=== PATIENT | female | born 1960 | race Caucasian/White ===

== ENCOUNTER → 2018-07-01 08:00 | Outpatient (CLI) | payer OTHER, SELFPAY ==
[2018-07-01 10:16] LABS: Cholesterol 173 mg/dL (140-199); HDL Cholesterol 47 mg/dL (40-60); LDL Cholesterol Calculated 111 mg/dL (<100); Triglycerides 76 mg/dL (35-150)
[2018-07-01 10:59] LABS: HIV 1 and 2 Antibody NEGATIVE (NEGATIVE)
== END ==
PROVIDERS: PCP Internal Medicine; Visit Provider Student in an Organized Health Care Education/Training Program
DX: Z13.220 Encounter for screening for lipoid disorders (principal); Z11.4 Encounter for screening for human immunodeficiency virus [HIV]
CPT/HCPCS: 36415; 80061; 86703

== ENCOUNTER → 2018-12-24 09:53 | Outpatient (CLI) | payer OTHER, SELFPAY ==
--- NOTE | 2018-12-24 | DI.MG.S_ITS ---
BILATERAL DIGITAL SCREENING MAMMOGRAM 3D/2D WITH CAD: 12/24/2018 CLINICAL: Screening Mammogram. Comparison is made to exams dated: 12/27/2016 mammogram, 12/22/2015 mammogram, 12/15/2014 mammogram, 09/14/2013 mammogram, and 09/09/2012 mammogram - [facility]. There are scattered fibroglandular elements in both breasts. Current study was also evaluated with a Computer Aided Detection (CAD) system. No significant masses, calcifications, or other findings are seen in either breast. There has been no significant interval change. IMPRESSION: NEGATIVE There is no mammographic evidence of malignancy. A 1 year screening mammogram is recommended. This exam was interpreted at Station ID: [id number]. NOTE: For mammograms, a report in lay terms will be sent to the patient. Approximately 15% of breast malignancies will not be visualized mammographically. In the management of a palpable breast mass, a negative mammogram must not discourage biopsy of a clinically suspicious lesion. Electronically Signed By: Rodolfo velásquez/michele:12/27/2018 19:17:53 letter sent: Normal Exam ACR BI-RADS Category 1: Negative 3341F
== END ==
PROVIDERS: PCP Internal Medicine; Visit Provider Internal Medicine
DX: Z12.31 Encounter for screening mammogram for malignant neoplasm of breast (principal)
CPT/HCPCS: 77063; 77067

== ENCOUNTER → 2020-01-10 15:27 | Outpatient (CLI) | payer OTHER, SELFPAY ==
[2020-01-10 15:56] LABS: COVID19 -Nasal RAPID Negative (Negative)
== END ==
PROVIDERS: PCP Internal Medicine; Visit Provider Physician Assistant
DX: Z11.59 Encounter for screening for other viral diseases (principal); R05 Cough
CPT/HCPCS: 87635

== ENCOUNTER → 2020-02-09 17:09 | Outpatient (CLI) | payer OTHER, SELFPAY ==
--- NOTE | 2020-02-09 | DI.MG.S_ITS ---
BILATERAL DIGITAL SCREENING MAMMOGRAM 3D/2D WITH CAD: 02/09/2020 CLINICAL: Routine screening. Comparison is made to exams dated: 12/24/2018 mammogram, 12/27/2016 mammogram, and 12/22/2015 mammogram - [facility]. There are scattered fibroglandular elements in both breasts. Current study was also evaluated with a Computer Aided Detection (CAD) system. No significant masses, calcifications, or other findings are seen in either breast. There has been no significant interval change. IMPRESSION: NEGATIVE There is no mammographic evidence of malignancy. A 1 year screening mammogram is recommended. This exam was interpreted at Station ID: [id number]. NOTE: For mammograms, a report in lay terms will be sent to the patient. Approximately 15% of breast malignancies will not be visualized mammographically. In the management of a palpable breast mass, a negative mammogram must not discourage biopsy of a clinically suspicious lesion. Electronically Signed By: Raffy Mart acr/michele:02/10/2020 08:42:35 letter sent: Normal Exam ACR BI-RADS Category 1: Negative 3341F
== END ==
PROVIDERS: PCP Internal Medicine; Referring Provider Internal Medicine; Visit Provider Internal Medicine
DX: Z12.31 Encounter for screening mammogram for malignant neoplasm of breast (principal)
CPT/HCPCS: 77063; 77067

== ENCOUNTER → 2020-03-10 08:38 | Outpatient (CLI) | payer OTHER, SELFPAY ==
[2020-03-10] MEDS: COVID-19 VACC(MODERNA-1)/PF 100 MCG/0.5 ML VIAL IM (08:46)
== END ==
PROVIDERS: PCP Internal Medicine; Visit Provider Internal Medicine
DX: Z23 Encounter for immunization (principal)
CPT/HCPCS: 0011A; 91301

== ENCOUNTER → 2020-04-07 08:16 | Outpatient (CLI) | payer OTHER, SELFPAY ==
[2020-04-07] MEDS: COVID-19 VACC #2, MRNA(MOD) 100 MCG/0.5 ML VIAL IM (08:23)
== END ==
PROVIDERS: PCP Internal Medicine; Visit Provider Internal Medicine
DX: Z23 Encounter for immunization (principal)
CPT/HCPCS: 0012A; 91301

== ENCOUNTER → 2020-06-23 14:35 | Outpatient (ROUT) | payer OTHER, SELFPAY ==
[2020-06-23 14:58] LABS: Add Manual Diff / Slide Review NO; Basophils Absolute Auto 0 /uL (0-100); Basophils Percent Auto 0.6 % (0-2); Eosinophils Absolute Auto 200 /uL (0-450); Eosinophils Percent Auto 3.2 % (2-4); Hematocrit 43.8 % (36-46); Hemoglobin 13.8 g/dL (12.0-16.0); Lymphocytes Absolute Auto 1700 /uL (1100-4500); Lymphocytes Percent Auto 34.4 % (25-40); Mean Corpuscular HGB Conc 31.6 % (30-36); Mean Corpuscular Hemoglobin 27.2 PG (26-34); Monocytes Absolute Auto 500 /uL (0-900); Monocytes Percent Auto 11.3 % (3-14); Neutrophils Absolute Auto 2400 /uL (1500-7000); Neutrophils Percent Auto 50.5 % (50-75); Platelet Count 248 X10^3/uL (150-400); Red Blood Cell Count 5.09 X10^6/uL (4.0-5.2); Red Cell Distribution Width 13.3 % (11.6-14.8); White Blood Cell Count 4.8 X10^3/uL (4.5-11.0)
[2020-06-23 15:10] LABS: Alanine Aminotransferase 29 IU/L (<35); Albumin Globulin Ratio 1.3 (1.0-2.8); Alkaline Phosphatase 84 U/L (38-126); Aspartate Aminotransferase 32 IU/L (14-36); BUN Creatinine Ratio 16.7 (6-22); Bilirubin Total 0.3 mg/dL (0.2-1.3); Blood Urea Nitrogen 15 mg/dL (7-17); Calcium 9.1 mg/dL (8.4-10.2); Carbon Dioxide 26 mmol/L (22-32); Chloride 107 mmol/L (98-107); Cholesterol 191 mg/dL (140-199); Estimated Glomerular Filt Rate > 60.0 mL/min (>60); Glucose 98 mg/dL (80-110); HDL Cholesterol 57 mg/dL (40-60); HEMOLYSIS < 15 (0-50); LDL Cholesterol Calculated 115 mg/dL (<100); Magnesium 2.1 mg/dL (1.6-2.3); Potassium 4.3 mmol/L (3.4-5.1); Sodium 142 mmol/L (137-145); Triglycerides 97 mg/dL (35-150)
[2020-06-23 15:39] LABS: TSH w/ Reflex to FT4 1.01 uIU/mL (0.47-4.68)
== END ==
PROVIDERS: PCP Internal Medicine; Visit Provider Physician Assistant
DX: E78.2 Mixed hyperlipidemia (principal); R00.2 Palpitations; R42 Dizziness and giddiness
CPT/HCPCS: 80053; 80061; 83735; 84443; 85025

== ENCOUNTER → 2020-07-03 15:02 | Outpatient (CLI) | payer OTHER, SELFPAY ==
--- NOTE | 2020-07-26 09:01 | PM.CARDMON.1 ---
[facility] Report Referral & Results Date Patient Seen: 07/03/20 Requesting provider: Sara Emery Indication: Palpitations Duration of monitoring (days): 3 Diary information: There were 6 patient triggered events and 6 patient diary entries Patient triggered events were associated with (within 45 seconds) sinus rhythm and runs of SVT/atrial tachycardia Diary events were associated with sinus rhythm only Data: Minimum heart rate identified was 47 beats per minute at 07:22 on 07/05/2020 Maximum sinus heart rate was 115 beats per minute at 18:51 on 07/04/2020 Maximum overall heart rate was 146 beats per minute at 19:48 on 07/04/2020 during a 5 beat run of SVT/atrial tachycardia There were 3 runs of SVT/atrial tachycardia the fastest being the 5 beat run above, the longest lasting 12 beats at a rate of 120 beats per minute Less than 1% of identified beats were ventricular or supraventricular ectopic in origin, which would classify them as rare. 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
== END ==
PROVIDERS: PCP Internal Medicine; Referring Provider Physician Assistant; Visit Provider Physician Assistant
DX: R00.2 Palpitations (principal)
CPT/HCPCS: 93242; 93244

== ENCOUNTER → 2020-08-01 07:53 | Outpatient (CLI) | payer OTHER, SELFPAY ==
--- NOTE | 2020-08-01 07:54 | DI.ECHO.S_ITS ---
[facility] +---------+ : : [address] : [address] : : : : [id number] : : : : Phone: [phone]+ Echocardiogram Report + + :Name: ETHEL GUNTER Study Date: 08/01/2020 Height: 69 in : :[facility] ReadingLocation: Weight: 200 lb : : Gender: Female BSA: 2.1 m2 : :: 1960 Age: 60 yrs BP: 142/78 mmHg: :Reason For Study: PALPITATIONS : :Ordering Physician: ANA, : :MONY Performed By: Francia Macedo : :Referring: MONY PEREZ : + + Interpretation Summary The left ventricle is normal in size and wall thickness. Left ventricular systolic function appears normal without focal wall motion abnormalities. The ejection fraction is estimated to be 60-65%. Diastolic parameters suggest probable normal left ventricular diastolic function and normal filling pressures. The right ventricle is normal in size and function. The right ventricular systolic pressure is estimated to be at least 17 mmHg based on an estimated right atrial pressure of 3 mm Hg. Both atria are normal in size. There is no significant valvular heart disease. The aortic root is normal size. Procedure: A two-dimensional transthoracic echocardiogram with color flow and Doppler was performed. The study quality was technically adequate. There is no prior echocardiogram noted for this patient. The patient was in sinus rhythm with heart rates between 64-73 bpm during the exam. Left Ventricle: The left ventricle is normal in size and wall thickness. Left ventricular systolic function appears normal without focal wall motion abnormalities. The ejection fraction is estimated to be 60-65%. Diastolic parameters suggest probable normal left ventricular diastolic function and normal filling pressures. Right Ventricle: The right ventricle is normal in size and function. Atria: Both atria are normal in size. There is no Doppler evidence for an interatrial shunt. Mitral Valve: The mitral valve leaflets appear mildly thickened, but open well. There is trace mitral regurgitation. Aortic Valve: The aortic valve is trileaflet. The aortic valve opens well. There is no aortic valve stenosis. No aortic regurgitation is present. Tricuspid Valve: The tricuspid valve is normal in structure and function. There is mild tricuspid regurgitation. The right ventricular systolic pressure is estimated to be at least 17 mmHg based on an estimated right atrial pressure of 3 mm Hg. Pulmonic Valve: The pulmonic valve leaflets are thin and pliable; valve motion is normal. There is no pulmonic valvular regurgitation. There is no significant valvular heart disease. Great Vessels: The aortic root is normal size. The dimensions of the ascending aorta are normal. The IVC is of normal diameter and collapses greater than 50% with a sniff. This suggests a low right atrial pressure of 3 mm Hg. Pericardium/ Pleura There is no pericardial effusion. There is no pleural effusion. MMode/2D Measurements & Calculations LVIDd: 4.2 cm LVOT diam: 1.9 cm LVIDs: 2.6 cm Ao root diam: 3.5 cm FS: 37.4 % asc Aorta Diam: 3.2 cm EPSS: 0.63 cm Ao Arch Diam (Prox Trans): 2.1 cm IVSd: 0.99 cm LVPWd: 1.1 cm LV anne. diameter/BSA (cm/m^2): 2.0 LV sys. diameter/BSA (cm/m^2): 1.3 LA A2 area: 16.4 cm2 RA long axis: 4.9 cm LA A4 area: 12.7 cm2 RA area: 13.2 cm2 LA length (vol): 4.5 cm RA vol: 30.2 ml LA vol: 39.6 ml RA : 14.6 ml/m2 LA vol index: 19.2 ml/m2 IVC diam: 2.0 cm RVD1 (basal): 2.6 cm RVD2 (mid): 2.3 cm TAPSE: 2.2 cm Doppler Measurements & Calculations Ao V2 max: 110.8 cm/sec LVOT Max Jose: 111.5 cm/sec Ao V2 mean: 77.6 cm/sec LV V1 max P.0 mmHg Ao max P.9 mmHg LV V1 VTI: 24.4 cm Ao mean P.7 mmHg EITAN(I,D): 2.6 cm2 Ao V2 VTI: 26.3 cm EITAN(V,D): 2.9 cm2 sev ratio: 0.93 EITAN indexed to BSA (cm^2/m^2): 1.3 MV E max jose: 64.3 cm/sec TR max jose: 187.3 cm/sec MV A max jose: 59.4 cm/sec TR max P.0 mmHg MV E/A: 1.1 PA V2 max: 80.1 cm/sec Med Peak E' Jose: 5.8 cm/sec PA V2 mean: 54.1 cm/sec E/E' med: 11.1 PA mean P.4 mmHg Lat Peak E' Jose: 10.4 cm/sec PA pr(Accel): 27.6 mmHg E/E' lat: 6.2 E/e' average: 8.6 MV dec time: 0.24 sec SV(LVOT): 69.3 ml Reading Physician:03:51 PM
== END ==
PROVIDERS: PCP Internal Medicine; Referring Provider Physician Assistant; Visit Provider Physician Assistant
DX: R00.2 Palpitations (principal)
CPT/HCPCS: 93306

== ENCOUNTER → 2020-08-04 09:11 | Outpatient (CLI) | payer OTHER, SELFPAY ==
[2020-08-04 12:03] LABS: COVID19 -Nasal RAPID Negative (Negative)
== END ==
PROVIDERS: PCP Internal Medicine; Visit Provider Surgery
DX: Z01.812 Encounter for preprocedural laboratory examination (principal); Z20.822 Contact with and (suspected) exposure to COVID-19
CPT/HCPCS: 87635; C9803

== ENCOUNTER 2020-08-07 07:26 | Day surgery (SDC) | payer OTHER, SELFPAY ==
[2020-08-07] VITALS (7 sets, daily range): BP systolic 102–122; BP diastolic 53–69; PULSE 66–77; RESP 12–16; TEMP 36.7–36.9; O2SAT 96–97; BMI 29.5
--- NOTE | 2020-08-07 | PATH_ITS ---
[facility] Accession Number: [id number] . 01 Material submitted: . sigmoid colon - SIGMOID COLON POLYP . 02 Diagnosis: Sigmoid Colon Polyp, Biopsy: Hyperplastic polyp. MRV 08/09/2020 1126 Local . 02 Electronically signed: . Cisoc Mcnityre MD, PhD, Pathologist NPI- [id number] . 01 Gross description: . SIGMOID COLON POLYP: Received in formalin are 2 fragment(s) of raymundo, soft tissue measuring 0.5 x 0.3 x 0.2 cm to 0.2 x 0.2 x 0.2 cm submitted entirely in 1 cassette(s) /EITAN 08/08/2020 0553 Local . 02 Pathologist provided ICD-10: K63.5 . 02 CPT . 776126 Performed at: 01 [facility] [address] [place] [address], [place], [place] [id number] MD Toby Cesar MD Phone: [phone] Performed at: [address] [facility] [address] [place], [place] [id number] MD Laurie Moya MD Phone: [phone]
[2020-08-07] MEDS: LACTATED RINGERS 1,000 ML 200 ML IV (08:12)
--- NOTE | 2020-08-07 08:38 | PM.HP.1 ---
History of Present Illness History of Present Illness Date Patient Seen: 08/07/20 Time Patient Seen: 08:38 Chief complaint: SDC Narrative: The patient presents for colorectal sreening. Last colonoscopy was 5 years ago and prior to this she had colonic polyps. No personal or family history of colon cancer. On further history denies any recent gastrointestinal symptoms. No nausea, vomiting, abdominal pain, loss of appetite, unexplained weight loss, change in bowel habits, diarrhea, constipation, melena, hematochezia, or bright red blood per rectum. Patient History Medical History Exposure to COVID-19 virus Headache Family & Social History Social History: household members spouse,children Tobacco & Substance use: Smoking Status Never smoker alcohol intake current alcohol intake frequency a few times a month Substance Use Type does not use Meds Home Medications and Allergies Home Medications Medication Instructions Recorded Confirmed Type No Known Home Medications 01/10/20 08/07/20 History Allergies Allergy/AdvReac Type Severity Reaction Status Date / Time latex [LATEX] Allergy Mild ITCHING, Verified 08/07/20 07:54 SKIN TURNS SKIN Review of Systems Review of Systems ROS: Yes All systems reviewed with the patient and are negative except as otherwise documented Exam Vital Signs (past 8 hours): - 08/07/20 07:57 Temperature 98.5 F Pulse Rate 72 Respiratory Rate 14 Blood Pressure 122/67 Pulse Oximetry 96 Oxygen Delivery Method Room Air Narrative Exam Narrative: GENERAL-well developed adult woman, no acute distress HEENT-no scleral icterus, hearing intact NECK-no JVD, trachea midline CVS- regular rate, no peripheral edema RESP-unlabored respiratory effort, no audible wheezing GI-soft, nontender nondistended MSK-no cyanosis or clubbing, extremities without deformity SKIN-warm, dry NEURO-alert and oriented, no focal deficits PYSCH-Appropriate mood and affect Assessment & Plan Assessment & Plan narrative: The patient requires colorectal screening and colonoscopy is recommended. Technical details were discussed. Risks, benefits, alternatives explained. Risks including but not limited to myocardial infarction, aspiration, bleeding, pain, missed lesion, incomplete examination, need for further radiographic studies, colonic perforation, and need for major abdominal surgery were discussed. All questions were answered to their satisfaction, and they are in agreement with this plan.
[2020-08-07] MEDS: fentaNYL 250 MCG/5 ML INJ IV (08:51)
[2020-08-07] MEDS: MIDAZOLAM 5 MG/5 ML VIAL IV (08:51)
--- NOTE | 2020-08-07 09:08 | PM.OP.ENDO ---
Operative Date/Time/Diagnoses Date of procedure: 08/07/20 Time of procedure: 09:08 Pre-op diagnosis: Personal history of colonic polyps Post-op diagnosis: same Procedure & Clinicians Study performed: Colonoscopy and polypectomy Same procedure as scheduled: Yes Indications: Personal history of colonic polyps Surgeon: Jose Sweet Procedure Notes Procedure in detail: Medications: Conscious sedation using 5 mg IV midazolam and 150 mcg IV of fentanyl The history and physical was performed/updated and the patient is ASA class is 2. The procedure was discussed in detail with the patient. Potential risks complications including infection, bleeding, missed diagnosis, perforation, need for surgery, and were explained. Their questions were answered and informed consent was obtained. Patient was brought to the procedure room and placed standard monitoring equipment. The patient's vital signs were monitored continuously throughout the entire procedure. Prior to starting time-out was performed. The patient was placed in the left lateral recumbent position. Procedural sedation was administered. Examination began with a thorough inspection of the perianal area there was no evidence of fissures, fistulae, external hemorrhoids or cutaneous malignancy. The colonoscopy scope was then placed into the anal canal and was advanced to the cecum, which was identified by the ileocecal valve, the appendiceal orifice and the confluence of the taenia. The scope was then slowly withdrawn examining colon thoroughly in all directions, irrigating it of any residual stool. 1. Sigmoid diverticulosis 2. 5 mm sigmoid polyp removed with biopsy forceps 3. Grade 1 internal hemorrhoids Thepatient tolerated the procedure well. They will be discharged once criteria are met. The prep was of good/excellent quality. The withdrawl time was 7 minutes. The sedation time was 22 minutes. Specimen(s): other (Sigmoid polyp) Complications: none Impression: Colonic polyp Post-procedure Recommendations: Colonscopy in 5 years Disposition: same day surgery
--- NOTE | 2020-08-07 09:26 | SUR.PHASEI ---
Stable pacu stay
--- NOTE | 2020-08-07 13:59 | SUR.PHASEII ---
Left when ready and left in stable condition.
== END 2020-08-07 10:05 | disposition home or self-care (01) ==
PROVIDERS: PCP Internal Medicine; Referring Provider Surgery; Visit Provider Surgery
PROC: 0DJD8ZZ Inspection of Lower Intestinal Tract, Via Natural or Artificial Opening Endoscopic (ICD-10-PCS; CPT 45378; principal; 2020-08-07 08:30)
DX: Z12.11 Encounter for screening for malignant neoplasm of colon (principal); Z86.010 Personal history of colon polyps; K57.30 Diverticulosis of large intestine without perforation or abscess without bleeding; K64.0 First degree hemorrhoids; K63.5 Polyp of colon
CPT/HCPCS: 45380; 99152; J2250; J3010

== ENCOUNTER 2020-12-19 09:00 | Outpatient (RCR) | payer OTHER, SELFPAY ==
--- NOTE | 2020-12-07 16:06 | PT.OIE ---
Current Diagnoses Stress incontinence (female) (male) (12/07/20) Cystocele, unspecified (12/07/20) Past Medical History (Last Reviewed 08/07/20 @ 08:38 by Jose Sweet MD) Exposure to COVID-19 virus Headache Visit Care Team Role Provider Type Adelaide Oliveira MD Primary Care Provider Physician Specialty: Internal Medicine Address: [address] [place] [address], [facility] Email: [email or web address] Sara Emery PA-C Attending Provider Non-Staff Referring Provider Specialty: Internal Medicine Address: [address] [place] [address], [id number] Email: [email or web address] Physical Therapy Initial Evaluation PT-OP-A Visit Information Start: 12/07/20 07:48 Freq: Status: Active Protocol: Document 12/07/20 14:30 AMB (Rec: 12/07/20 15:59 AMB [email or web address]) Out-Patient Physical Therapy Visit Information Visit Information Visit Type Initial Evaluation Visit Start Time 14:30 Visit Stop Time 15:20 Total Visit Minutes 50 Visit Number 1 PT-OP-B Current Condition Start: 12/07/20 07:48 Freq: Status: Active Protocol: Document 12/07/20 14:34 AMB (Rec: 12/07/20 14:45 AMB [id number]) Current Condition History of Current Condition Onset Date a couple years Current Complaints leaking with jumping/sneezing History of Current Condition Over the last few years, sneezing can cause leaking urine. Constipation seems to exacerbate. Sneezing and on a trampoline. 2 vaginal deliveries denies extended pushing. If I get too full, and then cough or sneeze, then I have an issue. Active at work, up on ladder gardening, but doesn't have a specific exercise program. PT-OP-C Subjective Start: 12/07/20 07:48 Freq: Status: Active Protocol: Document 12/07/20 14:30 AMB (Rec: 12/07/20 15:59 AMB [email or web address]) Patient Questionnaires Pelvic Pain and Urgency/Frequency Patient Symptom Scale Pelvic Pain Score 7 PT-OP-I Pelvic Floor Start: 12/07/20 07:48 Freq: Status: Active Protocol: Document 12/07/20 14:30 AMB (Rec: 12/07/20 15:59 AMB [email or web address]) Pelvic Floor Assessment Urine Pelvic Floor Surgery No Urinary Symptoms Prolapse Leakage Size Medium Leakage Cause Cough Other Leakage Causes constipation Leaks Per Day less than once a day Voiding Frequency 2-3 hours Nocturia 2 Bowel Bowel Symptoms Constipation Prolapse Cystocele Grade 2 Perineal Descent Resting Absent Bearing Present Contraction Ability Voluntary Contraction Moderate Voluntary Relaxation Moderate Manual Muscle Testing Left 2 Manual Muscle Testing Right 2 Manual Muscle Testing Anterior 1 Manual Muscle Testing Posterior 3 Muscle Endurance (Seconds) 5 Number of Quick Contractions In 10 4 Seconds PT-OP-T Assessment and Plan Start: 12/07/20 07:48 Freq: Status: Active Protocol: Document 12/07/20 14:30 AMB (Rec: 12/07/20 15:59 AMB [email or web address]) Physical Therapy Assessment Rehab Potential Rehabilitation Potential Good Evaluation Complexity Number of Personal Factors/Comorbidities 0 Number of Body Systems Impaired 1-2 Clinical Presentation at Evaluation Stable Impairments Impairments Functional Activities,Strength Goals Three Impairment pelvic floor strength Usp Goal (LTG) Shraddha will perform a pelvic floor contraction for 10 seconds in standing. LTG Duration 8 weeks Two Impairment Prolapse Short Term Goal (STG) Shraddha will be independent with constipation and pressure management to avoid worsening of her cystocele. STG Duration 4 weeks One Impairment Continence Short Term Goal (STG) Shraddha will contract her pelvic floor muscles while coughing to avoid leaking. STG Duration 4 weeks Assessment Summary Assessment Shraddha attends physical therapy with cystocele and stress urinary incontinence. She tended to use her abdominals when asked to contract her pelvic floor and did not have strong anterior pelvic floor musculature. She was educated in pressure reduction strategies and pelvic floor contraction. She will benefit from continued physical therapy to further educate in an appropriate pelvic floor and core stability program and to further decrease her prolapse symptoms. Physical Therapy Plan Frequency and Duration Frequency of Treatment 1x/Week Duration of Treatment 8 weeks Plan of Care Start Date 12/07/20 Plan of Care End Date 02/01/21 Therapeutic Interventions Therapeutic Interventions Home Exercise Program,Manual Therapy,Neuromuscular Re- education,Self-Care/Home Management,Therapeutic Activities,Therapeutic Exercises Modalities Biofeedback,Electric Stimulation Next Visit Focus/Plan Next Note Type Treatment Note Next Visit Plan Progress pelvic floor strength, continue to educate on pressure management, constipation management, could consider roll in roll out supine vs seated.
--- NOTE | 2020-12-07 16:07 | PT.OPPOC ---
Physical, Occupational & Speech Therapy At [facility] Current Diagnoses Stress incontinence (female) (male) (12/07/20) Cystocele, unspecified (12/07/20) Visit Care Team Role Provider Type Adelaide Oliveira MD Primary Care Provider Physician Specialty: Internal Medicine Address: [address] [place] [address], [facility] Email: [email or web address] Sara Emery PA-C Attending Provider Non-Staff Referring Provider Specialty: Internal Medicine Address: [address] [place] [address], [facility] Email: Plan Of Care PT-OP-T Assessment and Plan Start: 12/07/20 07:48 Freq: Status: Active Protocol: Document 12/07/20 14:30 AMB (Rec: 12/07/20 15:59 AMB [email or web address]) Physical Therapy Assessment Rehab Potential Rehabilitation Potential Good Evaluation Complexity Number of Personal Factors/Comorbidities 0 Number of Body Systems Impaired 1-2 Clinical Presentation at Evaluation Stable Impairments Impairments Functional Activities,Strength Goals Three Impairment pelvic floor strength Jail Goal (LTG) Shraddha will perform a pelvic floor contraction for 10 seconds in standing. LTG Duration 8 weeks Two Impairment Prolapse Short Term Goal (STG) Shraddha will be independent with constipation and pressure management to avoid worsening of her cystocele. STG Duration 4 weeks One Impairment Continence Short Term Goal (STG) Shraddha will contract her pelvic floor muscles while coughing to avoid leaking. STG Duration 4 weeks Assessment Summary Assessment Shraddha attends physical therapy with cystocele and stress urinary incontinence. She tended to use her abdominals when asked to contract her pelvic floor and did not have strong anterior pelvic floor musculature. She was educated in pressure reduction strategies and pelvic floor contraction. She will benefit from continued physical therapy to further educate in an appropriate pelvic floor and core stability program and to further decrease her prolapse symptoms. Physical Therapy Plan Frequency and Duration Frequency of Treatment 1x/Week Duration of Treatment 8 weeks Plan of Care Start Date 12/07/20 Plan of Care End Date 02/01/21 Therapeutic Interventions Therapeutic Interventions Home Exercise Program,Manual Therapy,Neuromuscular Re- education,Self-Care/Home Management,Therapeutic Activities,Therapeutic Exercises Modalities Biofeedback,Electric Stimulation Next Visit Focus/Plan Next Note Type Treatment Note Next Visit Plan Progress pelvic floor strenth, continue to educate on pressure management, constipation mangement, could consider roll in roll out supine vs seated. Plan of Care Dates Plan of Care Start Date 12/07/20 Plan of Care End Date 02/01/21 Electronically Signed by: Nguyen Houser, PT 12/07/20 [id number] Please Sign and Return: I have reviewed this Plan of Care and certify that the skilled therapy services above are required to meet the patient?s needs. Physician Signature Date Printed Name and Credentials Clinical Instructor Signature Printed Name and Credentials
--- NOTE | 2020-12-12 15:38 | PT.OTN ---
Current Diagnoses Stress incontinence (female) (male) (12/12/20) Cystocele, unspecified (12/12/20) Physical Therapy Treatment Note PT-OP-A Visit Information Start: 12/07/20 07:48 Freq: Status: Active Protocol: Document 12/12/20 09:00 AMB (Rec: 12/12/20 09:48 AMB [id number]) Out-Patient Physical Therapy Visit Information Visit Information Visit Type Treatment Note Visit Start Time 09:00 Visit Stop Time 09:45 Total Visit Minutes 45 Visit Number 2 PT-OP-B Current Condition Start: 12/07/20 07:48 Freq: Status: Active Protocol: Document 12/07/20 14:34 AMB (Rec: 12/07/20 14:45 AMB [id number]) Current Condition History of Current Condition Onset Date a couple years Current Complaints leaking with jumping/sneezing History of Current Condition Over the last few years, sneezing can cause leaking urine. Constipation seems to exacerbate. Sneezing and on a trampoline. 2 vaginals deliveries denies extended pushing. If I get too full, and then cough or sneeze, then I have an issue. Active at work, up on ladder gardening, but doesn't have a specific exercise program. PT-OP-C Subjective Start: 12/07/20 07:48 Freq: Status: Active Protocol: Document 12/12/20 09:00 AMB (Rec: 12/12/20 11:04 AMB [email or web address]) OP-PT Subjective Patient Comments Patient Comments Pt has worked on being more aware of her pelvic floor over the last week. PT-OP-I Pelvic Floor Start: 12/07/20 07:48 Freq: Status: Active Protocol: Document 12/07/20 14:30 AMB (Rec: 12/07/20 15:59 AMB [email or web address]) Pelvic Floor Assessment Urine Pelvic Floor Surgery No Urinary Symptoms Prolapse Leakage Size Medium Leakage Cause Cough Other Leakage Causes constipation Leaks Per Day less than once a day Voiding Frequency 2-3 hours Nocturia 2 Bowel Bowel Symptoms Constipation Prolapse Cystocele Grade 2 Perineal Descent Resting Absent Bearing Present Contraction Ability Voluntary Contraction Moderate Voluntary Relaxation Moderate Manual Muscle Testing Left 2 Manual Muscle Testing Right 2 Manual Muscle Testing Anterior 1 Manual Muscle Testing Posterior 3 Muscle Endurance (Seconds) 5 Number of Quick Contractions In 10 4 Seconds PT-OP-Q Treatments Start: 12/07/20 07:48 Freq: Status: Active Protocol: Document 12/12/20 15:22 AMB (Rec: 12/12/20 15:38 AMB [email or web address]) Therapeutic Exercises Sitting Exercises 1 Sitting Exercise Name roll in roll out Reps/Minutes #2 tband Comments roll out was challenging, cues for breath Standing Exercises 1 Standing Exercise Name long holds and quick flicks with varying foot positions Comments stride stance, WBOS, NBOS with WBOS the most challenging PT-OP-T Assessment and Plan Start: 12/07/20 07:48 Freq: Status: Active Protocol: Document 12/12/20 09:00 AMB (Rec: 12/12/20 11:04 AMB [email or web address]) Physical Therapy Assessment Assessment Summary Assessment Pt more challenged by long holds and roll out exercise. Doing better with breath and less abdominal usage. Physical Therapy Plan Next Visit Focus/Plan Next Note Type Treatment Note Next Visit Plan Progress standing and WBOS exercises.
--- NOTE | 2020-12-19 09:00 | PT.OTN ---
Current Diagnoses Stress incontinence (female) (male) (12/19/20) Cystocele, unspecified (12/19/20) Physical Therapy Treatment Note PT-OP-A Visit Information Start: 12/07/20 07:48 Freq: Status: Active Protocol: Document 12/19/20 09:01 AMB (Rec: 12/19/20 09:49 AMB [id number]) Out-Patient Physical Therapy Visit Information Visit Information Visit Type Treatment Note Visit Start Time 09:00 Visit Stop Time 09:45 Total Visit Minutes 45 Visit Number 3 PT-OP-B Current Condition Start: 12/07/20 07:48 Freq: Status: Active Protocol: Document 12/07/20 14:34 AMB (Rec: 12/07/20 14:45 AMB [id number]) Current Condition History of Current Condition Onset Date a couple years Current Complaints leaking with jumping/sneezing History of Current Condition Over the last few years, sneezing can cause leaking urine. Constipation seems to exacerbate. Sneezing and on a trampoline. 2 vaginals deliveries denies extended pushing. If I get too full, and then cough or sneeze, then I have an issue. Active at work, up on ladder gardening, but doesn't have a specific exercise program. PT-OP-C Subjective Start: 12/07/20 07:48 Freq: Status: Active Protocol: Document 12/19/20 09:00 AMB (Rec: 12/21/20 09:10 AMB [email or web address]) OP-PT Subjective Patient Comments Patient Comments Pt sneezed and was able to be continent so is looking at that as a good sign. PT-OP-I Pelvic Floor Start: 12/07/20 07:48 Freq: Status: Active Protocol: Document 12/07/20 14:30 AMB (Rec: 12/07/20 15:59 AMB [email or web address]) Pelvic Floor Assessment Urine Pelvic Floor Surgery No Urinary Symptoms Prolapse Leakage Size Medium Leakage Cause Cough Other Leakage Causes constipation Leaks Per Day less than once a day Voiding Frequency 2-3 hours Nocturia 2 Bowel Bowel Symptoms Constipation Prolapse Cystocele Grade 2 Perineal Descent Resting Absent Bearing Present Contraction Ability Voluntary Contraction Moderate Voluntary Relaxation Moderate Manual Muscle Testing Left 2 Manual Muscle Testing Right 2 Manual Muscle Testing Anterior 1 Manual Muscle Testing Posterior 3 Muscle Endurance (Seconds) 5 Number of Quick Contractions In 10 4 Seconds PT-OP-Q Treatments Start: 10/14/21 07:48 Freq: Status: Active Protocol: Document 12/19/20 09:00 AMB (Rec: 12/21/20 09:10 AMB [email or web address]) Therapeutic Exercises Sitting Exercises 1 Sitting Exercise Name roll in roll out Reps/Minutes #2 tband Comments roll out was challenging, cues for breath Standing Exercises 2 Standing Exercise Name PF control with squats and lunges Reps/Minutes 10 min 1 Standing Exercise Name long holds and quick flicks with varying foot positions Comments stride stance, WBOS, NBOS with WBOS the most challenging PT-OP-T Assessment and Plan Start: 12/07/20 07:48 Freq: Status: Active Protocol: Document 12/19/20 09:01 AMB (Rec: 12/19/20 09:49 AMB [id number]) Physical Therapy Assessment Goals Three Impairment pelvic floor strength Halfway Goal (LTG) Shraddha will perform a pelvic floor contraction for 10 seconds in standing. LTG Duration 8 weeks Two Impairment Prolapse Short Term Goal (STG) Shraddha will be independent with constipation and pressure management to avoid worsening of her cystocele. STG Duration 4 weeks One Impairment Continence Short Term Goal (STG) Shraddha will contract her pelvic floor muscles while coughing to avoid leaking. STG Duration 4 weeks Assessment Summary Assessment Samantha is doing well an is feeling more confident with her strengthening. Encouraged her to contract her pelvic floor muscles with daily activities like sit to stand. Physical Therapy Plan Next Visit Focus/Plan Next Note Type Treatment Note Next Visit Plan Gave pelvic floor strengthening with sit to stand.
--- NOTE | 2021-01-08 09:28 | PT.OPDS ---
Current Diagnoses Stress incontinence (female) (male) (12/19/20) Cystocele, unspecified (12/19/20) Visit Care Team Role Provider Type Adelaide Oliveira MD Primary Care Provider Physician Specialty: Internal Medicine Address: [address] [place] [address], [id number] Email: [email or web address] Sara Emery PA-C Attending Provider Non-Staff Referring Provider Specialty: Internal Medicine Address: [address] [place] [address], [address] Email: [email or web address] Visit Number Visit Number 3 Discharge Summary PT-OP-B Current Condition Start: 12/07/20 07:48 Freq: Status: Active Protocol: Document 12/07/20 14:34 AMB (Rec: 12/07/20 14:45 AMB [id number]) Current Condition History of Current Condition Onset Date a couple years Current Complaints leaking with jumping/sneezing History of Current Condition Over the last few years, sneezing can cause leaking urine. Constipation seems to exacerbate. Sneezing and on a trampoline. 2 vaginals deliveries denies extended pushing. If I get too full, and then cough or sneeze, then I have an issue. Active at work, up on ladder gardening, but doesn't have a specific exercise program. PT-OP-C Subjective Start: 12/07/20 07:48 Freq: Status: Active Protocol: Document 12/19/20 09:00 AMB (Rec: 12/21/20 09:10 AMB [email or web address]) OP-PT Subjective Patient Comments Patient Comments Pt sneezed and was able to be continent so is looking at that as a good sign. PT-OP-I Pelvic Floor Start: 12/07/20 07:48 Freq: Status: Active Protocol: Document 12/07/20 14:30 AMB (Rec: 12/07/20 15:59 AMB [email or web address]) Pelvic Floor Assessment Urine Pelvic Floor Surgery No Urinary Symptoms Prolapse Leakage Size Medium Leakage Cause Cough Other Leakage Causes constipation Leaks Per Day less than once a day Voiding Frequency 2-3 hours Nocturia 2 Bowel Bowel Symptoms Constipation Prolapse Cystocele Grade 2 Perineal Descent Resting Absent Bearing Present Contraction Ability Voluntary Contraction Moderate Voluntary Relaxation Moderate Manual Muscle Testing Left 2 Manual Muscle Testing Right 2 Manual Muscle Testing Anterior 1 Manual Muscle Testing Posterior 3 Muscle Endurance (Seconds) 5 Number of Quick Contractions In 10 4 Seconds PT-OP-T Assessment and Plan Start: 12/07/20 07:48 Freq: Status: Active Protocol: Document 01/08/21 09:24 AMB (Rec: 01/08/21 09:28 AMB [email or web address]) Physical Therapy Assessment Goals Three Impairment pelvic floor strength Correction Goal (LTG) Shraddha will perform a pelvic floor contraction for 10 seconds in standing. LTG Duration 8 weeks Two Impairment Prolapse Short Term Goal (STG) Shraddha will be independent with constipation and pressure management to avoid worsening of her cystocele. STG Duration 4 weeks One Impairment Continence Short Term Goal (STG) Shraddha will contract her pelvic floor muscles while coughing to avoid leaking. 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 She stated she was feeling better and was working on her home program and felt that would be good enough for right now. Physical Therapy Plan Discharge Physical Therapy Discharge Reasons Patient Request
== END 2021-03-27 09:46 ==
LOC: PHYS 09:00
PROVIDERS: PCP Internal Medicine; Referring Provider Physician Assistant; Visit Provider Physician Assistant
DX: N81.10 Cystocele, unspecified (principal); N39.3 Stress incontinence (female) (male)
CPT/HCPCS: 97110; 97161

== ENCOUNTER → 2020-12-25 18:34 | Outpatient (CLI) | payer OTHER, SELFPAY ==
--- NOTE | 2020-12-25 18:38 | DI.MRI.S_ITS ---
PROCEDURE: MR SHOULDER RT WO CON INDICATIONS: PAIN IN RIGHT SHOULDER TECHNIQUE: Noncontrast oblique coronal T2 fast spin echo with fat saturation, oblique sagittal T1 spin echo and T2 fast spin echo with fat saturation, axial T1 spin echo and T2 fast spin echo with fat saturation through the shoulder. COMPARISON: None. FINDINGS: Image quality: Susceptibility artifact is seen, likely reflecting prior intervention. Rotator cuff: Thinning of the supraspinatus tendon with partial bursal and articular surface tears as well as interstitial tear of the musculotendinous junction. Mild to moderate infraspinatus tendinopathy with partial bursal surface tear in the distal aspect. Mild supraspinatus tendinopathy with interstitial tear. Sagittal images demonstrate grade 1/2 supraspinatus muscle atrophy. Bones and bursae: No bone marrow contusions or fractures. [id number] acromioclavicular joint degeneration with evidence of acromioplasty. Trace subacromial-subdeltoid bursal fluid is present. Capsule and soft tissues: Linear signal within the anterior superior labrum, compatible with tear (series 7, image 10). The long head of the biceps tendon demonstrates normal location and morphology. IMPRESSION: 1. Thinning of the supraspinatus tendon with partial bursal and articular surface tears as detailed above. 2. Mild to moderate infraspinatus tendinopathy with partial bursal surface tear. 3. Mild supraspinatus tendinopathy. 4. Deficiency of the acromion, suggesting prior acromioplasty. 5. Mild subacromial/subdeltoid bursitis. Dictated by: Roderick Burns M.D. on 12/26/2020 at 9:45 Approved by: Roderick Burns M.D. on 12/26/2020 at 9:57
== END ==
PROVIDERS: PCP Internal Medicine; Referring Provider Internal Medicine; Visit Provider Internal Medicine
DX: M25.511 Pain in right shoulder (principal); M75.111 Incomplete rotator cuff tear or rupture of right shoulder, not specified as traumatic; M75.51 Bursitis of right shoulder; M19.011 Primary osteoarthritis, right shoulder
CPT/HCPCS: 73221

== ENCOUNTER → 2021-05-14 16:06 | Outpatient (CLI) | payer OTHER, SELFPAY ==
--- NOTE | 2021-05-14 16:08 | DI.MG.S_ITS ---
BILATERAL DIGITAL SCREENING MAMMOGRAM 3D/2D WITH CAD: 05/14/2021 CLINICAL: Routine screening. Comparison is made to exams dated: 02/09/2020 mammogram, 12/24/2018 mammogram, and 12/27/2016 mammogram - [facility]. The tissue of both breasts is predominantly fatty. Current study was also evaluated with a Computer Aided Detection (CAD) system. No significant masses, calcifications, or other findings are seen in either breast. There has been no significant interval change. IMPRESSION: NEGATIVE There is no mammographic evidence of malignancy. A 1 year screening mammogram is recommended. This exam was interpreted at Station ID: [id number]. NOTE: For mammograms, a report in lay terms will be sent to the patient. Approximately 15% of breast malignancies will not be visualized mammographically. In the management of a palpable breast mass, a negative mammogram must not discourage biopsy of a clinically suspicious lesion. Electronically Signed By: Alaina garza/michele:05/15/2021 09:44:25 letter sent: Normal Exam ACR BI-RADS Category 1: Negative 3341F
== END ==
PROVIDERS: PCP Internal Medicine; Referring Provider Internal Medicine; Visit Provider Internal Medicine
DX: Z12.31 Encounter for screening mammogram for malignant neoplasm of breast (principal)
CPT/HCPCS: 77063; 77067

== ENCOUNTER → 2022-06-12 14:34 | Outpatient (CLI) | payer OTHER, SELFPAY ==
--- NOTE | 2022-06-12 | DI.MG.S_ITS ---
BILATERAL DIGITAL SCREENING MAMMOGRAM 3D/2D WITH CAD: 06/12/2022 CLINICAL: Routine screening. Comparison is made to exams dated: 05/14/2021 mammogram, 02/09/2020 mammogram, and 12/24/2018 mammogram - [facility]. There are scattered areas of fibroglandular density in both breasts (category b / 25%-50% glandular tissue). Current study was also evaluated with a Computer Aided Detection (CAD) system. No significant masses, calcifications, or other findings are seen in either breast. There has been no significant interval change. IMPRESSION: NEGATIVE There is no mammographic evidence of malignancy. A 1 year screening mammogram is recommended. Based on the Tyrer Cuzick model (a risk assessment model) the patient's lifetime risk is 5.8% and her 10 year risk is 2.7%. According to the ACR, ACS, and NCCN guidelines, an annual breast MRI exam along with mammogram is recommended if the patient's lifetime risk is 20% or greater. This exam was interpreted at Station ID: [id number]. NOTE: For mammograms, a report in lay terms will be sent to the patient. Approximately 15% of breast malignancies will not be visualized mammographically. In the management of a palpable breast mass, a negative mammogram must not discourage biopsy of a clinically suspicious lesion. Electronically Signed By: Darvin sheikh/michele:06/12/2022 16:49:31 letter sent: Normal Exam ACR BI-RADS Category 1: Negative [id number]
== END ==
PROVIDERS: PCP Internal Medicine; Referring Provider Internal Medicine; Visit Provider Internal Medicine
DX: Z12.31 Encounter for screening mammogram for malignant neoplasm of breast (principal)
CPT/HCPCS: 77063; 77067

== ENCOUNTER → 2023-03-31 11:33 | Outpatient (CLI) | payer OTHER, SELFPAY | PROVIDERS: PCP Internal Medicine; Visit Provider Physician Assistant | DX: N90.89 Other specified noninflammatory disorders of vulva and perineum (principal); N39.0 Urinary tract infection, site not specified; N76.0 Acute vaginitis | CPT/HCPCS: 87086; 87210 ==

== ENCOUNTER → 2024-05-07 16:10 | Outpatient (CLI) | payer OTHER, SELFPAY ==
--- NOTE | 2024-05-07 16:13 | DI.MG.S_ITS ---
MM screening mammo BI: 05/07/2024. BI-RADS: 1 CLINICAL: 63-year old female for bilateral screening mammogram. Tyrer-Cuzick lifetime risk of 4.0%. No personal or first-degree family history of breast cancer. PRIOR EXAMS 06/12/2022, 05/14/2021, 02/09/2020, 12/24/2018, 12/27/2016, 12/22/2015, 12/15/2014. MAMMOGRAPHY TECHNIQUE: 2D and 3D (tomosynthesis) digital mammographic views obtained, with additional images as needed for full coverage. Current study was also evaluated with a Computer Aided Detection (CAD) system. DENSITY B. There are scattered areas of fibroglandular density. MAMMOGRAPHY FINDINGS Bilateral: No suspicious mass, asymmetry, microcalcification, or other abnormality seen. No significant change from comparison. IMPRESSION: * No evidence of malignancy. RECOMMENDATIONS Bilateral * Annual screening mammography. OVERALL ASSESSMENT CATEGORY BI-RADS-1: Negative. The [employer] recommends annual screening mammography beginning at age 40 for women with average risk of breast cancer. ELECTRONICALLY SIGNED: Yue Ayon M.D. on 05/10/2024 at 01:04:07 PM PT Interpreting Station ID: [id number]
== END ==
PROVIDERS: PCP Physician Assistant; Referring Provider Physician Assistant; Visit Provider Physician Assistant
DX: Z12.31 Encounter for screening mammogram for malignant neoplasm of breast (principal)
CPT/HCPCS: 77063; 77067